=== PATIENT | female | born 1995 | race Caucasian/White ===

== ENCOUNTER 2021-03-24 11:16 | Emergency (ER) | payer BC ==
[~2021-03-24] VITALS: Ht 165.1 cm; Wt 77.2 kg
[2021-03-24] MEDS ORDERED: DEXTROSE 50% 25 GM / 50ML DISP.SYRIN. IV ONE (11:56)
[2021-03-24] MEDS: DEXTROSE 50% 25 GM / 50ML DISP.SYRIN. IV PRN (11:58)
[2021-03-24 12:10] LABS: BASO # 0.1 x10^3/uL (0.0-0.2); BASO % 1 % (0-3); EOS # 0.2 x10^3/uL (0.0-0.7); EOS % 3 % (0-3); HEMATOCRIT 38.1 % (36.0-47.0); HEMOGLOBIN 12.9 g/dL (12.0-15.5); LYMPH % 24 % (24-48); MEAN CORPUSCULAR HEMOGLOBIN 31 pg (25-35); MEAN CORPUSCULAR HGB CONC 34 g/dL (31-37); MEAN CORPUSCULAR VOLUME 91 fL (79-100); MONO # 0.5 x10^3/uL (0.0-1.1); MONO % 6 % (0-9); NEUT # 5.4 x10^3/uL (1.8-7.7); NEUT % 66 % (31-73); PLATELET COUNT 353 x10^3/uL (140-400); RED BLOOD COUNT 4.18 x10^6/uL (3.50-5.40); RED CELL DISTRIBUTION WIDTH 13.5 % (11.5-14.5); WHITE BLOOD COUNT 8.2 x10^3/uL (4.0-11.0)
[2021-03-24 12:20] LABS: CALCIUM 8.1 mg/dL (8.5-10.1); CREATININE 0.7 mg/dL (0.6-1.0); GFR 103.7; MAGNESIUM 1.8 mg/dL (1.8-2.4); POTASSIUM 4.3 mmol/L (3.5-5.1)
[2021-03-24] MEDS: ONDANSETRON PF 4 MG/2 ML VIAL. IVP ONE (13:12)
[2021-03-24] MEDS: ACETAMINOPHEN 500 MG TABLET PO ONE (13:13)
--- NOTE | 2021-03-24 14:12 | PHYS DOC ---
Past Medical History Past Medical History: Depression, Diabetes-Type I Past Surgical History: No Surgical History Smoking Status: Current Every Day Smoker Alcohol Use: Heavy General Adult EDM: Chief Complaint: SEIZURE HPI: HPI: Patient is a 25 year old female with history of T1DM who presents with a first- time seizure. Patient states that she drank a large amount of whiskey last night and was feeling nauseous this morning. She had her usual morning smoothie and her first blood glucose was in the 70s. After a smoothie her next blood glucose was in the 190s, and she gave herself 3 units of short acting insulin. She did not eat anything else after this dosage. Female menstrual for the seizure began to feel nauseous, sweaty similar to how she feels when she has a low blood glucose. She then fell out of a chair and had tonic-clonic activity for approximately 45 seconds that was self-limited. States that she drinks approximately 5 shots per day. Has been doing so the past several days, with no lapse in alcohol intake. Denies other drug use. She did report poor sleep last night Review of Systems: Review of Systems: Constitutional: Denies fever or chills. [] Eyes: Denies change in visual acuity. [] HENT: Denies nasal congestion or sore throat. [] Respiratory: Denies cough or shortness of breath. [] Cardiovascular: Denies chest pain or edema. [] GI: Reports nausea and vomiting. Denies abdominal pain, bloody stools or diarrhea. [] : Denies dysuria. [] Musculoskeletal: Denies back pain or joint pain. [] Integument: Denies rash. [] Neurologic: Reports headache, reports seizure Heart Score: C/O Chest Pain: No Current Medications: Current Medications Medications (Trade) Dose Ordered Sig/Gertrude Start Time Stop Time Status Last Admin Dose Admin Acetaminophen (Tylenol) 1,000 mg 1X ONCE 03/24/21 13:00 03/24/21 13:01 DC 03/24/21 13:13 1,000 MG Dextrose (Dextrose 50%-Water Syringe) 25 gm STK-MED ONCE 03/24/21 11:56 03/24/21 11:56 DC Ondansetron HCl (Zofran) 4 mg 1X ONCE 03/24/21 13:00 03/24/21 13:01 DC 03/24/21 13:12 4 MG Allergies: Allergies: Allergies Coded Allergies Type Severity Reaction Last Updated Verified No Known Drug Allergies 03/24/21 No Physical Exam: PE: Constitutional: Well developed, well nourished, no acute distress, non-toxic appearance. [] Eyes: PERRLA, EOMI Neck: Normal range of motion, no tenderness, supple, no stridor. [] Cardiovascular:Heart rate regular rhythm, no murmur [] Lungs & Thorax: Bilateral breath sounds clear to auscultation [] Abdomen: Bowel sounds normal, soft, no tenderness, no masses, no pulsatile masses. [] Skin: Warm, dry, no erythema, no rash. [] Back: No tenderness, no CVA tenderness. [] Extremities: No tenderness, no cyanosis, no clubbing, ROM intact, no edema. [] Neurologic: Alert, oriented to person, place, time. Face is symmetric. Speech is normal. Cranial nerves III-XII intact. 5/5 strength in bilateral upper and lower extremities major muscle groups. No ataxia Psychologic: Affect normal, judgement normal, mood normal. [] Current Patient Data: Labs: Laboratory Tests Test 03/24/21 11:25 03/24/21 11:50 03/24/21 11:55 03/24/21 12:50 Glucose (Fingerstick) 56 mg/dL (70-99) L 58 mg/dL (70-99) L 171 mg/dL (70-99) H White Blood Count 8.2 x10^3/uL (4.0-11.0) Red Blood Count 4.18 x10^6/uL (3.50-5.40) Hemoglobin 12.9 g/dL (12.0-15.5) Hematocrit 38.1 % (36.0-47.0) Mean Corpuscular Volume 91 fL (79-100) Mean Corpuscular Hemoglobin 31 pg (25-35) Mean Corpuscular Hemoglobin Concent 34 g/dL (31-37) Red Cell Distribution Width 13.5 % (11.5-14.5) Platelet Count 353 x10^3/uL (140-400) Neutrophils (%) (Auto) 66 % (31-73) Lymphocytes (%) (Auto) 24 % (24-48) Monocytes (%) (Auto) 6 % (0-9) Eosinophils (%) (Auto) 3 % (0-3) Basophils (%) (Auto) 1 % (0-3) Neutrophils # (Auto) 5.4 x10^3/uL (1.8-7.7) Lymphocytes # (Auto) 2.0 x10^3/uL (1.0-4.8) Monocytes # (Auto) 0.5 x10^3/uL (0.0-1.1) Eosinophils # (Auto) 0.2 x10^3/uL (0.0-0.7) Basophils # (Auto) 0.1 x10^3/uL (0.0-0.2) Sodium Level 138 mmol/L (136-145) Potassium Level 4.3 mmol/L (3.5-5.1) Chloride Level 101 mmol/L (98-107) Carbon Dioxide Level 25 mmol/L (21-32) Anion Gap 12 (6-14) Blood Urea Nitrogen 11 mg/dL (7-20) Creatinine 0.7 mg/dL (0.6-1.0) Estimated GFR (Cockcroft-Gault) 103.7 Glucose Level 62 mg/dL (70-99) L Calcium Level 8.1 mg/dL (8.5-10.1) L Magnesium Level 1.8 mg/dL (1.8-2.4) Test 03/24/21 13:54 Glucose (Fingerstick) 174 mg/dL (70-99) H Laboratory Tests 03/24/21 11:50 Laboratory Tests 03/24/21 11:50 Vital Signs: Vital Signs Date Time Temp Pulse Resp B/P (MAP) Pulse Ox O2 Delivery O2 Flow Rate FiO2 03/24/21 11:17 97.6 85 18 125/84 (98) 98 Room Air 97.6 EKG: EKG: [] Radiology/Procedures: Radiology/Procedures: [] Course & Med Decision Making: Course & Med Decision Making Pertinent Labs and Imaging studies reviewed. (See chart for details) Patient a 25-year-old female with history of T1DM who presents with a first-time seizure today. Glucose on arrival was 56. Patient is neurologically intact. And concerned that she may have had a hypoglycemia related seizure. Patient was given IV dextrose, and food to eat. Glucoses stabilize to the 170s. Treating her nausea to determine if she can keep down p.o. intake. She has had no recent trauma or preceding concerning neurologic symptoms to suggest the need for CT of the head. Will defer for now. Advised about driving restrictions for the next 6 months. Will be provided with neurology follow-up. Will defer any antiepileptic medications given the likely hypoglycemia. Dragon Disclaimer: Dragon Disclaimer: This electronic medical record was generated, in whole or in part, using a voice recognition dictation system. Departure Departure Impression: Primary Impression: First time seizure Additional Impression: Hypoglycemia Disposition: HOME / SELF CARE / HOMELESS Condition: STABLE Referrals: JOHANNY GIPSON DO (PCP) EPHRAIM MARROQUIN MD Schedule follow-up appointment Patient Instructions: Seizure, Adult Additional Instructions: You cannot drive until you have 6 months without a seizure. I think your seizure was likely due to low blood glucose, so please keep a close eye on this and sure you have plenty to eat with complex carbs. If you develop new/concerning symptoms such as worsening that is not treated by Tylenol/ibuprofen, high fevers, shaking chills, recurrent seizures, or other new/concerning symptoms please return to the emergency department for reevaluation Otherwise, please follow-up with Dr. Marroquin, our neurology specialist. Call his office later today or tomorrow to schedule a follow-up appointment. For headache tylenol and ibuprofen are best used on a schedule. Please alternate between the two. -Tylenol 1000 mg every 6 hours (do not exceed 4000 mg in one day) -Ibuprofen 400 mg every 6 hours. Take with food. Do not take for more than 1 week. SPARKLE PEREIRA MD Mar 24, 2021 14:12
[2021-03-24 14:45] VITALS: BP 102/60
== END 2021-03-24 15:35 | disposition home or self-care (01) ==
LOC: ER 11:16
DX: R56.9 Unspecified convulsions (principal); E10.649 Type 1 diabetes mellitus with hypoglycemia without coma; F17.200 Nicotine dependence, unspecified, uncomplicated
CPT/HCPCS: 36415; 80048; 81025; 82962; 83735; 85025; 96374; 96375; 99285; J2405